=== PATIENT | male | born 1970 | race Caucasian/White ===

== ENCOUNTER 2019-03-31 07:43 | Emergency (ER) | payer SELFPAY ==
[~2019-03-31] VITALS: Ht 177.8 cm; Wt 95.2 kg
[2019-03-31] MEDS ORDERED: PROAIR HFA8.5 GM INH (07:51)
[2019-03-31] MEDS ORDERED: PREDNISONE20 MG PO (08:38)
== END 2019-03-31 08:43 | disposition home or self-care (01) ==
LOC: ED 07:43
DX: J45.901 Unspecified asthma with (acute) exacerbation (principal)
CPT/HCPCS: 71046; 94640; 99284-25; J1100

== ENCOUNTER 2019-05-25 08:20 | Emergency (ER) | payer OTHER ==
[~2019-05-25] VITALS: Ht 180.3 cm; Wt 99.8 kg
[~2019-05-25 08:20] MED LIST: PREDNISONE20 MG PO; PROAIR HFA8.5 GM INH
--- OUTSIDE RECORDS SUMMARY | 2019-05-25 08:22 | XMS ---
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 E.Lizeth. VISIT COUNT (12 MO.) 6 [facility] 2 [facility] [address] TOTAL 13 NOTE: Visits indicate total known visits. ED/UCC VISIT TRACKING (12 MO.) 05/25/2019 08:20 [facility]OLA [facility] [place] TYPE: Emergency COMPLAINT: - VOMITING, SOB 05/17/2019 18:29 SHOLA Ramirez [place] TYPE: Emergency COMPLAINT: - SOB DIAGNOSES: - Shortness of breath - Personal history of nicotine dependence - Unspecified asthma with (acute) exacerbation 03/31/2019 07:43 SHOLA Ramirez [place] TYPE: Emergency COMPLAINT: - SOB DIAGNOSES: - Shortness of breath - Unspecified asthma with (acute) exacerbation 02/01/2019 20:24 [employer] [place] [employer] [place] TYPE: Emergency DIAGNOSES: - NAUSEA/BP ISSUES AFTER TAKING TOO MANY PILLS ON ACCIDENT - Adverse effect of unspecified drugs, medicaments and biologic 01/14/2019 19:28 [employer] [place] [employer] [place] TYPE: Emergency DIAGNOSES: - CHEST PAIN - Palpitations - Mild intermittent asthma, uncomplicated 10/06/2018 14:47 [facility] [place] TYPE: Emergency DIAGNOSES: - Palpitations - PALPUTATIONS - Headache 10/03/2018 07:09 [employer] [place] TYPE: Emergency DIAGNOSES: - Acute tonsillitis, unspecified - SORE THROAT, VOMITING 09/19/2018 07:34 [facility] [place] TYPE: Emergency DIAGNOSES: - DIFFICULTY BREATHING HX OF ASTHMA - Moderate persistent asthma, uncomplicated 08/01/2018 07:15 [facility] [place] TYPE: Emergency COMPLAINT: - DIARRHEA, VOMITING, ABDOMINAL CRAMPING DIAGNOSES: 1. Nausea with vomiting, unspecified 08/01/2018 06:47 [facility] [place] TYPE: Emergency COMPLAINT: - DIARRHEA, CRAMPS, HEADACHE, VOMITING 07/14/2018 13:23 [facility] [place] TYPE: Emergency DIAGNOSES: - Moderate persistent asthma with (acute) exacerbation - SHORTNESS OF BREATH ASTHMA 06/25/2018 17:19 [facility] [place] TYPE: Emergency DIAGNOSES: - Headache (Adult - New Onset Or New Symptoms) - Headache 06/03/2018 11:00 [facility] TYPE: Emergency DIAGNOSES: - Vomiting, unspecified - Abd Pain - Abdominal Pain - Unspecified abdominal pain INPATIENT VISIT TRACKING (12 MO.) No inpatient visits to display in this time frame [email or web address]
[2019-05-25] MEDS ORDERED: TESSALON PERLE100 MG PO (12:13)
--- NOTE | 2019-05-26 21:41 | EKG ---
[facility] [address] [facility] [place] [address] Signed Normal sinus rhythm Normal ECG No previous ECGs available Confirmed by NICHOLE BARRERA MD ([id number]) on 05/26/2019 9:40:58 PM Electronically Signed By: NICHOLE BARRERA MD 05/26/19 214 PATIENT NAME: KOSTAS NUNES ADA Electrocardiogram DATE OF : [birth year] PHYSICIAN: NICHOLE BARRERA MD REPORT #: [id number] REPORT IS CONFIDENTIAL AND NOT TO BE RELEASED WITHOUT AUTHORIZATION
== END 2019-05-25 12:27 | disposition home or self-care (01) ==
LOC: ED 08:20
DX: R05 Cough (principal); F43.10 Post-traumatic stress disorder, unspecified; J45.909 Unspecified asthma, uncomplicated; Z87.891 Personal history of nicotine dependence; Z79.899 Other long term (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
CPT/HCPCS: 71045; 80053; 83880; 84484; 85025; 93005; 93010; 96374; 99284-25; J2405; J7030

== ENCOUNTER 2019-09-21 16:04 | Emergency (ER) | payer OTHER ==
[~2019-09-21] VITALS: Ht 180.3 cm; Wt 102.1 kg
[~2019-09-21 16:04] MED LIST changes: +TESSALON PERLE100 MG PO
[2019-09-21] MEDS ORDERED: PREDNISONE20 MG PO (17:37)
== END 2019-09-21 18:27 | disposition home or self-care (01) ==
LOC: ED 16:04
DX: J45.901 Unspecified asthma with (acute) exacerbation (principal); Z87.891 Personal history of nicotine dependence
CPT/HCPCS: 71046; 94640; 99284-25; J7512

== ENCOUNTER → 2019-12-17 | Emergency (ER) | payer OTHER ==
[~2019-12-17] VITALS: Ht 180.3 cm; Wt 102.1 kg
[~2019-12-17] MED LIST changes: +CELEXA40 MG PO; +SEROQUEL300 MG PO
--- NOTE | 2019-12-17 13:48 | EKG ---
[facility] [address] [place] [address] Signed Normal sinus rhythm Normal ECG When compared with ECG of 25-MAY-2019 08:40, No significant change was found Confirmed by PATRICIA HUMMEL MD ([id number]) on 12/17/2019 1:48:23 PM Electronically Signed By: PATRICIA HUMMEL MD 12/17/19 1348 PATIENT NAME: KOSTAS NUNES ADA Electrocardiogram DATE OF : [birth year] PHYSICIAN: PATRICIA HUMMEL MD REPORT #: [id number] REPORT IS CONFIDENTIAL AND NOT TO BE RELEASED WITHOUT AUTHORIZATION
--- NOTE | 2019-12-18 10:05 | PATH ---
[facility] [address] [place], [place] [address] Signed ORDERING PHYSICIAN: Heber Page MD PATIENT NAME: KOSTAS NUNES GENDER: Miah : 1970 Prior History: No cases found. SPECIMEN(S): MOLECULAR PATHOLOGY RESULTS: SARS-CoV-2 Not Detected ADDITIONAL NOTES.: The Marcus Fusion SARS-CoV-2 Assay is a multiplex real-time PCR (RT-PCR) in vitro diagnostic test intended for the qualitative detection of RNA from SARS-CoV-2 from individuals who meet COVID-19 clinical and/or epidemiological criteria. In general, SARS-CoV-2 RNA can be detected during the acute phase of infection. Positive results indicate the presence of SARS-CoV-2 RNA. Clinical correlation with patient history and other diagnostic information is necessary to determine patient infection status. Positive results do not rule out bacterial infection or co-infection with other viruses. Negative results do not preclude SARS-CoV-2 infection and should not be used as the sole basis for patient management decisions. Negative results must be combined with other clinical observations, patient history, and epidemiological information. The Marcus Fusion SARS-CoV-2 Assay is not yet approved or cleared by the [place] FDA. When there are no FDA-approved or cleared tests available, and other criteria are met, FDA can make tests available under an emergency access mechanism called an Emergency Use Authorization (EUA). The EUA for this test is supported by the [place] of Health and Human Service's (HHS's) declaration that circumstances exist to justify the emergency use of in vitro diagnostics for the detection and/or diagnosis of the virus that causes COVID-19. This EUA will remain in effect for the duration of the COVID-19 declaration justifying emergency of IVDs, unless it is terminated or revoked by FDA, after which the test may no longer be used. The Marcus Fusion SARS-CoV-2 Assay is for use only under EUA PATIENT NAME: KOSTAS NUNES PATHOLOGY DATE OF : [birth year] REPORT #: [id number] PHYSICIAN: LEV SANTIAGO PCP: ELISE HERZOG REPORT IS CONFIDENTIAL AND NOT TO BE RELEASED WITHOUT AUTHORIZATION [facility] [address] [place], [place] [address] Signed in [place] laboratories certified under the Clinical Laboratory Improvement Amendments of 1988 (CLIA) to perform high complexity tests. [facility] is certified under CLIA to perform high complexity clinical laboratory testing. PERFORMING LABORATORY.: Molecular testing was performed by [facility] [address] [place], [place] [address], [place] [address] (Elevator Operator: Albaro Allen D.O.; CLIA#: [id number]) Diagnostician: System Interface Pathologist Electronically Signed 12/18/2019 Copies: ~ PATIENT NAME: KOSTAS NUNES PATHOLOGY DATE OF : [birth year] REPORT #: [id number] PHYSICIAN: LEV SANTIAGO PCP: ELISE HERZOG REPORT IS CONFIDENTIAL AND NOT TO BE RELEASED WITHOUT AUTHORIZATION
== END ==
LOC: ED 11:32
DX: R07.89 Other chest pain (principal); J45.909 Unspecified asthma, uncomplicated; Z20.828 Contact with and (suspected) exposure to other viral communicable diseases; F43.10 Post-traumatic stress disorder, unspecified; Z87.891 Personal history of nicotine dependence; Z79.899 Other long term (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
CPT/HCPCS: 71045; 71046; 80053; 83735; 84484; 85025; 93005; 93010; 96374; 99285-25; C9803; J1100; J7030

== ENCOUNTER 2020-01-13 09:25 | Emergency (ER) | payer OTHER ==
[~2020-01-13] VITALS: Ht 180.3 cm; Wt 102.1 kg
--- OUTSIDE RECORDS SUMMARY | 2020-01-13 09:30 | XMS ---
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 Care History Medical/Surgical 05/26/2019 [facility] \T\middot;\T\nbsp; PATIENT IS A -RECEIVES SERVICES THROUGH OR IN [place]. \T\middot;\T\nbsp; Location: [address], [place] [address]- E.D. VISIT COUNT (12 MO.) 2 [facility] 6 [place] [place] TOTAL 8 NOTE: Visits indicate total known visits. ED/UCC VISIT TRACKING (12 MO.) 01/13/2020 09:27 SHOLA Ramirez [place] TYPE: Emergency COMPLAINT: - BREATHING DIFFICULTY 12/17/2019 11:34 [facility]OL[facility] Ramirez [place] TYPE: Emergency COMPLAINT: - SOB, COLD SWEAT, NAUSEA, CHEST DISCOMFORT DIAGNOSES: - Other residential (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 - Post-traumatic stress disorder, unspecified - Contact with and (suspected) exposure to other viral communicable diseases - Personal history of nicotine dependence - Other chest pain - Unspecified asthma, uncomplicated 09/21/2019 16:[address] [facility] [place] TYPE: Emergency COMPLAINT: - WHEEZING DIAGNOSES: - Wheezing - Unspecified asthma with (acute) exacerbation - Personal history of nicotine dependence 05/25/2019 08:[address] [facility] [place] TYPE: Emergency COMPLAINT: - VOMITING, SOB DIAGNOSES: - Post-traumatic stress disorder, unspecified - Other superintendent terminal (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 - Personal history of nicotine dependence - Unspecified asthma, uncomplicated - Cough 05/17/2019 18:[address] [facility] [place] TYPE: Emergency COMPLAINT: - SOB DIAGNOSES: - Shortness of breath - Personal history of nicotine dependence - Unspecified asthma with (acute) exacerbation 03/31/2019 07:43 [facility]OL[facility] [place] TYPE: Emergency COMPLAINT: - SOB DIAGNOSES: - Shortness of breath - Unspecified asthma with (acute) exacerbation 02/01/2019 20:24 [facility] [place] TYPE: Emergency DIAGNOSES: - NAUSEA/BP ISSUES AFTER TAKING TOO MANY PILLS ON ACCIDENT - Adverse effect of unspecified drugs, medicaments and biological substances, initial encounter 01/14/2019 19:28 [facility] [place] TYPE: Emergency DIAGNOSES: - CHEST PAIN - Palpitations - Mild intermittent asthma, uncomplicated INPATIENT VISIT TRACKING (12 MO.) No inpatient visits to display in this time frame [email or web address]
[2020-01-13] MEDS ORDERED: VENTOLIN HFA18 GM INH (10:16)
[2020-01-13] MEDS ORDERED: PREDNISONE20 MG PO (10:22)
== END 2020-01-13 10:26 | disposition home or self-care (01) ==
LOC: ED 09:25
DX: J45.901 Unspecified asthma with (acute) exacerbation (principal); F43.10 Post-traumatic stress disorder, unspecified; Z87.891 Personal history of nicotine dependence; Z79.899 Other long term (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
CPT/HCPCS: 94640; 99284; J1100

== ENCOUNTER 2020-02-11 06:41 | Emergency (ER) | payer OTHER ==
[~2020-02-11] VITALS: Ht 180.3 cm; Wt 107.0 kg
[~2020-02-11 06:41] MED LIST changes: +VENTOLIN HFA18 GM INH
--- OUTSIDE RECORDS SUMMARY | 2020-02-11 06:44 | XMS ---
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 Care History Medical/Surgical 05/26/2019 [facility] \T\middot;\T\nbsp; PATIENT IS A -RECEIVES [place]ROUGH [place]. \T\middot;\T\nbsp; Location: [address], [place] [address]- E.D. VISIT COUNT (12 MO.) 7 SHOLA Foley TOTAL 7 NOTE: Visits indicate total known visits. 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 (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 - Post-traumatic stress disorder, unspecified - Contact with and (suspected) exposure to other viral communicable diseases - Personal history of nicotine dependence - Other chest pain - Unspecified asthma, uncomplicated 09/21/2019 16:05 [facility]OL[facility] Ramirez [place] TYPE: Emergency COMPLAINT: - WHEEZING DIAGNOSES: - Wheezing - Unspecified asthma with (acute) exacerbation - Personal history of nicotine dependence 05/25/2019 08:20 [facility] [place] TYPE: Emergency COMPLAINT: - VOMITING, SOB DIAGNOSES: - Post-traumatic stress disorder, unspecified - Other parts counterman (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 - Personal history of nicotine dependence - Unspecified asthma, uncomplicated - Cough 05/17/2019 18:29 [facility] [place] TYPE: Emergency COMPLAINT: - SOB DIAGNOSES: - Shortness of breath - Personal history of nicotine dependence - Unspecified asthma with (acute) exacerbation 03/31/2019 07:43 [facility] [place] TYPE: Emergency COMPLAINT: - SOB DIAGNOSES: - Shortness of breath - Unspecified asthma with (acute) exacerbation INPATIENT VISIT TRACKING (12 MO.) No inpatient visits to display in this time frame [email or web address]
== END 2020-02-11 19:10 | disposition home or self-care (01) ==
LOC: ED 06:41
DX: K29.70 Gastritis, unspecified, without bleeding (principal); J45.909 Unspecified asthma, uncomplicated; Z87.891 Personal history of nicotine dependence; Z79.899 Other long term (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
CPT/HCPCS: 80053; 81001; 83690; 85025; 96374; 96375; 99284-25; J1170; J2405

== ENCOUNTER 2020-05-16 23:14 | Emergency (ER) | payer OTHER ==
[~2020-05-16] VITALS: Ht 180.3 cm; Wt 104.3 kg
[2020-05-16] MEDS ORDERED: DOXYCYCLINE HY100 MG PO (23:30)
[2020-05-17] MEDS ORDERED: BENADRYL25 MG PO (00:37)
--- NOTE | 2020-05-17 15:40 | EKG ---
[facility] [address] [facility] [place], [place] [address] Signed Normal sinus rhythm Normal ECG When compared with ECG of 17-DEC-2019 11:51, No significant change was found Confirmed by JESÚS MORA DO ([id number]) on 05/17/2020 3:40:20 PM Electronically Signed By: JESÚS MORA DO 05/17/20 1540 PATIENT NAME: KOSTAS NUNES ADA Electrocardiogram DATE OF : [birth year] PHYSICIAN: JESÚS MORA DO REPORT #: [id number] REPORT IS CONFIDENTIAL AND NOT TO BE RELEASED WITHOUT AUTHORIZATION
== END 2020-05-17 01:52 | disposition home or self-care (01) ==
LOC: ED 23:14
DX: R00.2 Palpitations (principal); R11.2 Nausea with vomiting, unspecified; J45.909 Unspecified asthma, uncomplicated; Z87.891 Personal history of nicotine dependence; Z79.899 Other long term (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
CPT/HCPCS: 80053; 83690; 83735; 84484; 85025; 93005; 93010; 96374; 99285-25; J2405

== ENCOUNTER 2020-07-20 10:59 | Emergency (ER) | payer OTHER ==
[~2020-07-20] VITALS: Ht 180.3 cm; Wt 104.3 kg
[~2020-07-20 10:59] MED LIST changes: +BENADRYL25 MG PO; +DOXYCYCLINE HY100 MG PO
[2020-07-20] MEDS ORDERED: PROMETHAZINE HC25 M1 PO (13:59)
--- NOTE | 2020-07-21 13:34 | EKG ---
[facility] [address] [place] [address] Signed Normal sinus rhythm with sinus arrhythmia Normal ECG When compared with ECG of 16-MAY-2020 23:19, No significant change was found Confirmed by NICHOLE BARRERA MD ([id number]) on 07/21/2020 1:33:58 PM Electronically Signed By: NICHOLE BARRERA MD 07/21/20 1334 PATIENT NAME: KOSTAS NUNES AAD Electrocardiogram DATE OF : [birth year] PHYSICIAN: NICHOLE BARRERA MD REPORT #: [id number] REPORT IS CONFIDENTIAL AND NOT TO BE RELEASED WITHOUT AUTHORIZATION
== END 2020-07-20 14:15 | disposition home or self-care (01) ==
LOC: ED 10:59
DX: R11.2 Nausea with vomiting, unspecified (principal); F43.10 Post-traumatic stress disorder, unspecified; J45.909 Unspecified asthma, uncomplicated; Z87.891 Personal history of nicotine dependence; Z79.899 Other long term (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
CPT/HCPCS: 71045; 74177; 80053; 83735; 84484; 85025; 93005; 93010; 99284-25; J2405; Q9967

== ENCOUNTER 2020-08-12 20:01 | Emergency (ER) | payer OTHER ==
[~2020-08-12] VITALS: Ht 180.3 cm; Wt 100.7 kg
[~2020-08-12 20:01] MED LIST changes: +PROMETHAZINE HC25 M1 PO
--- OUTSIDE RECORDS SUMMARY | 2020-08-12 20:10 | XMS ---
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 Care History Medical/Surgical 05/26/2019 [facility] \T\middot;\T\nbsp; PATIENT IS A -[facility] [place] \T\middot;\T\nbsp; Location: [address], [place] [address]- E.D. VISIT COUNT (12 MO.) 7 SHOLA Foley TOTAL 7 NOTE: Visits indicate total known visits. ED/UCC VISIT TRACKING (12 MO.) 08/12/2020 20:01 SHOLA Ramirez [place] TYPE: Emergency COMPLAINT: - VOMITING 07/20/2020 11:00 [facility]OL[facility] [place] TYPE: Emergency COMPLAINT: - NAUSEA/DIZZINESS DIAGNOSES: - Personal history of nicotine dependence - Post-traumatic stress disorder, unspecified - Nausea with vomiting, unspecified - Unspecified asthma, uncomplicated - Other terminal clerk (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 05/16/2020 23:15 [facility]OL[facility] Ramirez [place] TYPE: Emergency COMPLAINT: - SICK TO STOMACH DIAGNOSES: - Other penitentiary (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 - Personal history of nicotine dependence - Nausea with vomiting, unspecified - Palpitations - Unspecified asthma, uncomplicated 02/11/2020 06:41 SHOL[facility] [place] TYPE: Emergency COMPLAINT: - ABD/BACK PAIN, NAUSEA DIAGNOSES: - Gastritis, unspecified, without bleeding - Unspecified asthma, uncomplicated - Personal history of nicotine dependence - Other penitentiary (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 01/13/2020 09:27 [facility]OL[facility] Ramirez [place] TYPE: Emergency COMPLAINT: - BREATHING DIFFICULTY DIAGNOSES: - Post-traumatic stress disorder, unspecified - Shortness of breath - Personal history of nicotine dependence - Other penitentiary (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 - Unspecified asthma with (acute) exacerbation 12/17/2019 11:34 [facility]OL[facility] Ramirez [place] TYPE: Emergency COMPLAINT: - SOB, COLD SWEAT, NAUSEA, CHEST DISCOMFORT DIAGNOSES: - Other terminal clerk (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 - Post-traumatic stress disorder, unspecified - Contact with and (suspected) exposure to other viral communicable diseases - Personal history of nicotine dependence - Other chest pain - Unspecified asthma, uncomplicated 09/21/2019 16:05 [facility]OL[facility] [place] TYPE: Emergency COMPLAINT: - WHEEZING DIAGNOSES: - Wheezing - Unspecified asthma with (acute) exacerbation - Personal history of nicotine dependence INPATIENT VISIT TRACKING (12 MO.) No inpatient visits to display in this time frame [email or web address]
[2020-08-12] MEDS ORDERED: OMEPRAZOLE20 MG PO (20:42)
--- NOTE | 2020-08-13 07:12 | EKG ---
[facility] [address] [facility] [place], [place] [address] Signed Normal sinus rhythm Normal ECG When compared with ECG of 20-JUL-2020 11:40, No significant change was found Confirmed by PATRICIA HUMMEL MD ([id number]) on 08/13/2020 7:12:39 AM Electronically Signed By: PATRICIA HUMMEL MD 08/13/20711 PATIENT NAME: KOSTAS NUNES ADA Electrocardiogram DATE OF : [birth year] PHYSICIAN: PATRICIA HUMMEL MD REPORT #: [id number] REPORT IS CONFIDENTIAL AND NOT TO BE RELEASED WITHOUT AUTHORIZATION
== END 2020-08-13 01:10 | disposition home or self-care (01) ==
LOC: ED 20:01
DX: F41.9 Anxiety disorder, unspecified (principal); R45.851 Suicidal ideations; J45.909 Unspecified asthma, uncomplicated; F17.200 Nicotine dependence, unspecified, uncomplicated; Z79.899 Other long term (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
CPT/HCPCS: 80053; 81001; 83690; 83735; 84443; 84484; 85025; 93005; 93010; 96374; 99285-25; G0480; J2405

== ENCOUNTER 2020-08-22 10:45 | Emergency (ER) | payer OTHER ==
[~2020-08-22] VITALS: Ht 180.3 cm; Wt 100.7 kg
[~2020-08-22 10:45] MED LIST changes: +OMEPRAZOLE20 MG PO
--- OUTSIDE RECORDS SUMMARY | 2020-08-22 10:52 | XMS ---
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 Care History Medical/Surgical 05/26/2019 [facility] \T\middot;\T\nbsp; PATIENT IS A -[facility] [place]. \T\middot;\T\nbsp; Location: [address], [place] [address]- E.D. VISIT COUNT (12 MO.) 8 SHOLA Foley TOTAL 8 NOTE: Visits indicate total known visits. ED/UCC VISIT TRACKING (12 MO.) 08/22/2020 10:45 SHOLA Ramirez [place] TYPE: Emergency COMPLAINT: - NAUSEA 08/12/2020 20:01 [facility]OL[facility] [place] TYPE: Emergency COMPLAINT: - VOMITING DIAGNOSES: - Other intermediate (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 - Nicotine dependence, unspecified, uncomplicated - Suicidal ideations - Unspecified asthma, uncomplicated - Anxiety disorder, unspecified 07/20/2020 11:00 [facility]OL[facility] [place] TYPE: Emergency COMPLAINT: - NAUSEA/DIZZINESS DIAGNOSES: - Personal history of nicotine dependence - Post-traumatic stress disorder, unspecified - Nausea with vomiting, unspecified - Unspecified asthma, uncomplicated - Other intermediate (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 05/16/2020 23:15 [facility] [place] TYPE: Emergency COMPLAINT: - SICK TO STOMACH DIAGNOSES: - 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 (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 - Personal history of nicotine dependence - Nausea with vomiting, unspecified - Palpitations - Unspecified asthma, uncomplicated 02/11/2020 06:41 [facility]OL[facility] [place] TYPE: Emergency COMPLAINT: - ABD/BACK PAIN, NAUSEA DIAGNOSES: - Gastritis, unspecified, without bleeding - Unspecified asthma, uncomplicated - Personal history of nicotine dependence - Other intermediate (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 01/13/2020 09:27 [facility] [place] TYPE: Emergency COMPLAINT: - BREATHING DIFFICULTY DIAGNOSES: - Post-traumatic stress disorder, unspecified - Shortness of breath - Personal history of nicotine dependence - Other intermediate (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 - Unspecified asthma with (acute) exacerbation 12/17/2019 11:34 [facility]OL[facility] Ramirez [place] TYPE: Emergency COMPLAINT: - SOB, COLD SWEAT, NAUSEA, CHEST DISCOMFORT DIAGNOSES: - Other intermediate (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 - Post-traumatic stress disorder, [...] visits to display in this time frame [email or web address]
[2020-08-22] MEDS ORDERED: PROMETHAZINE HC25 M1 PO (11:03)
[2020-08-22] MEDS ORDERED: ONDANSETRON ODT8 MG PO (12:46)
== END 2020-08-22 13:10 | disposition home or self-care (01) ==
LOC: ED 10:45
DX: R11.2 Nausea with vomiting, unspecified (principal); F41.9 Anxiety disorder, unspecified; F43.10 Post-traumatic stress disorder, unspecified; F17.200 Nicotine dependence, unspecified, uncomplicated; Z79.899 Other long term (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
CPT/HCPCS: 80053; 83735; 85025; 96374; 99284-25; J2405; J7030

== ENCOUNTER 2020-11-08 16:46 | Emergency (ER) | payer OTHER ==
[~2020-11-08] VITALS: Ht 180.3 cm; Wt 100.2 kg
[~2020-11-08 16:46] MED LIST changes: +ONDANSETRON ODT8 MG PO
[2020-11-08] MEDS ORDERED: CITALOPRAM HBR20 MG PO (20:13)
[2020-11-08] MEDS ORDERED: QUETIAPINE FUM300 MG PO (20:13)
[2020-11-08] MEDS ORDERED: LORAZEPAM1 MG PO (20:13)
== END 2020-11-08 23:57 | disposition home or self-care (01) ==
LOC: ED 16:46
DX: U07.1 COVID-19 (principal); J45.909 Unspecified asthma, uncomplicated; F17.200 Nicotine dependence, unspecified, uncomplicated; Z79.899 Other long term (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
CPT/HCPCS: 99284-25; C9803; M0243; Q0244; U0003

== ENCOUNTER 2020-12-14 22:00 | Emergency (ER) | payer OTHER ==
[~2020-12-14] VITALS: Ht 180.3 cm; Wt 104.0 kg
[~2020-12-14 22:00] MED LIST changes: +CITALOPRAM HBR20 MG PO; +LORAZEPAM1 MG PO; +QUETIAPINE FUM300 MG PO
--- OUTSIDE RECORDS SUMMARY | 2020-12-14 22:28 | XMS ---
PreManage Notification: KOSTAS NUNES Security Manager Culture Events No recent Security Events currently on file CRITERIA MET - ED - Positive COVID-19 Lab Result - [facility] CARE PROVIDERS Dino De León Community Health Worker 01/22/2019-Current PHONE: [phone] [facility] \F\ [facility] 05/26/2019-[facility] Pharm[facility] PHARMACY PHONE: [phone] [facility]Current PHONE: [phone] Uvaldo has no Care Guidelines for this patient. Care History Medical/Surgical 09/01/2020 [facility] - PATIENT HAS A [facility] PROVIDER OUT OF [place] AND A PROVIDER AT [facility]- DR VELASCO. PATIENT HAS SEEN DR VELASCO 08/31/20 ABD . HE HAS AN APT WITH [facility] PROVIDER AT THE END OF SEPTEMBER - EARLIEST APT THEY CAN DO. - PATIENT DOES NOT LIKE [employer] AND WILL GO THROUGH THE [place] FOR MENTAL HEALTH RESOURCES PER PATIENT PREFERENCE. 05/26/2019 [facility] \T\middot;\T\nbsp; PATIENT [place] -[place]. \T\middot;\T\nbsp; Location: [address], [place] [address]- E.D. VISIT COUNT ([address] MO[address] [facility]. TOTAL 9 NOTE: Visits indicate total known visits. ED/UCC VISIT TRACKING (12 MO.) 12/14/2020 22:01 SHOLA Ramirez [place] TYPE: Emergency COMPLAINT: - DENTAL PAIN 11/08/2020 16:47 [place] TYPE: Emergency COMPLAINT: - DIFFICULTY BREATHING DIAGNOSES: - Nicotine dependence, unspecified, uncomplicated - COVID-19 - Unspecified asthma, uncomplicated - Other skilled nursing (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 - Shortness of breath 08/22/2020 10:[address] [facility] [place] TYPE: Emergency COMPLAINT: - NAUSEA DIAGNOSES: - Anxiety disorder, unspecified - Nicotine dependence, unspecified, uncomplicated - Nausea with vomiting, unspecified - Other skilled nursing (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 - Post-traumatic stress disorder, unspecified 08/12/2020 20:[address] [facility] [place] TYPE: Emergency COMPLAINT: - VOMITING DIAGNOSES: - Other skilled nursing (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 - Nicotine dependence, unspecified, uncomplicated - Suicidal ideations - Unspecified asthma, uncomplicated - Anxiety disorder, unspecified 07/20/2020 11:00 [facility]OLA Ramirez [place] TYPE: Emergency COMPLAINT: - NAUSEA/DIZZINESS DIAGNOSES: - Personal history of nicotine dependence - Post-traumatic stress disorder, unspecified - Nausea with vomiting, unspecified - Unspecified asthma, uncomplicated - Other skilled nursing (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 05/16/2020 23:15 [facility]OL[facility] [place] TYPE: Emergency COMPLAINT: - SICK TO STOMACH DIAGNOSES: - Other skilled nursing (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 - Personal history of nicotine dependence - Nausea with vomiting, unspecified - Palpitations - Unspecified asthma, uncomplicated 02/11/2020 06:41 [facility]OL[facility] [place] TYPE: Emergency COMPLAINT: - ABD/BACK PAIN, NAUSEA DIAGNOSES: - Gastritis, unspecified, without bleeding - Unspecified asthma, uncomplicated - Personal history of nicotine dependence - 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 long term care pharmacist (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 01/13/2020 09:27 [facility]OL[facility] [place] TYPE: Emergency COMPLAINT: - BREATHING DIFFICULTY DIAGNOSES: - Post-traumatic stress disorder, unspecified - Shortness of breath - Personal history of nicotine dependence - Other skilled nursing (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 - Unspecified asthma with (acute) exacerbation 12/17/2019 11:34 SHOLA Ramirez [place] TYPE: Emergency COMPLAINT: - SOB, COLD SWEAT, NAUSEA, CHEST DISCOMFORT DIAGNOSES: - Other skilled nursing (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 - Post-traumatic stress disorder, unspecified - Contact with and (suspected) exposure to other viral communicable diseases - Personal history of nicotine dependence - Other chest pain - Unspecified asthma, uncomplicated INPATIENT VISIT TRACKING (12 MO.) No inpatient visits to display in this time frame [email or web address]
[2020-12-14] MEDS ORDERED: AMOXICILLIN500 MG PO (22:41)
[2020-12-14] MEDS ORDERED: HYDROCODON-ACE1 EA10 PO (22:41)
== END 2020-12-14 23:05 | disposition home or self-care (01) ==
LOC: ED 22:00
DX: K08.89 Other specified disorders of teeth and supporting structures (principal); F43.10 Post-traumatic stress disorder, unspecified; J45.909 Unspecified asthma, uncomplicated; F17.200 Nicotine dependence, unspecified, uncomplicated; Z79.899 Other long term (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
CPT/HCPCS: 99282

== ENCOUNTER 2021-07-16 20:49 | Emergency (ER) | payer OTHER ==
[~2021-07-16] VITALS: Ht 177.8 cm; Wt 108.5 kg
[~2021-07-16 20:49] MED LIST changes: +AMOXICILLIN500 MG PO; +HYDROCODON-ACE1 EA10 PO
--- OUTSIDE RECORDS SUMMARY | 2021-07-16 20:52 | XMS ---
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 \F\ [facility] ([facility]) 05/26/2019-Current [facility] Pharmacy PHARMACY PH[facility]: [phone] [facility]Current PHONE: Unknown Uvaldo has no Care Guidelines for this patient. Care History Medical/Surgical 09/01/2020 [facility] - PATIENT HAS A VA PROVIDER OUT OF [place] AND A PROVIDER AT [facility]- DR VELASCO. PATIENT HAS SEEN DR VELASCO 08/31/20 ABD . HE HAS AN APT WITH [facility] PROVIDER AT THE END OF SEPTEMBER - EARLIEST APT THEY CAN DO. - PATIENT DOES NOT LIKE [employer] AND WILL GO THROUGH THE [place] FOR MENTAL HEALTH RESOURCES PER PATIENT PREFERENCE. 05/26/2019 [facility] \T\middot;\T\nbsp; PATIENT IS A -RECEIVES SERVICES THROUGH [facility] IN [place]. \T\middot;\T\nbsp; Location: [address], [place] [address]- E.D. VISIT COUNT (12 MO.) 7 [facility] TOTAL 7 NOTE: Visits indicate total known visits. ED/UCC VISIT TRACKING (12 MO.) 07/16/2021 20:50 [facility] [place] TYPE: Emergency COMPLAINT: - HEAD ACHE, DIZZINESS, SWEATS, 01/09/2021 11:23 [facility] [place] TYPE: Emergency COMPLAINT: - HEART PALPITATIONS,N/V DIAGNOSES: - Post-traumatic stress disorder, unspecified - Unspecified asthma, uncomplicated - Other skilled nursing (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 - Palpitations - Atrial premature depolarization - Nicotine dependence, unspecified, uncomplicated 12/14/2020 22:01 [facility] [place] TYPE: Emergency COMPLAINT: - DENTAL PAIN DIAGNOSES: - Other skilled nursing (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 - Other specified disorders of teeth and supporting structures - Unspecified asthma, uncomplicated - Nicotine dependence, unspecified, uncomplicated - Post-traumatic stress disorder, unspecified 11/08/2020 16:47 [facility] [place] TYPE: Emergency COMPLAINT: - DIFFICULTY BREATHING DIAGNOSES: - Nicotine dependence, unspecified, uncomplicated - COVID-19 - Unspecified asthma, uncomplicated - Other medical 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 [place] HRip Shepard [place] TYPE: Emergency COMPLAINT: - NAUSEA DIAGNOSES: - Anxiety disorder, unspecified - Nicotine dependence, unspecified, uncomplicated - Nausea with vomiting, unspecified - Other skilled nursing (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 - Post-traumatic stress disorder, unspecified 08/12/2020 20:[address] [facility] [place] [facility] [place] TYPE: Emergency COMPLAINT: - VOMITING DIAGNOSES: - Other skilled nursing (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 - Nicotine dependence, unspecified, uncomplicated - Suicidal ideations - Unspecified asthma, uncomplicated - Anxiety disorder, unspecified 07/20/2020 11:[address] [facility] [place] [facility] [place] TYPE: Emergency COMPLAINT: - NAUSEA/DIZZINESS DIAGNOSES: - Personal history of nicotine dependence - Post-traumatic stress disorder, unspecified - Nausea with vomiting, unspecified - Unspecified asthma, uncomplicated - Other skilled nursing (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 INPATIENT VISIT TRACKING (12 MO.) No inpatient visits to display in this time frame [email or web address]
[2021-07-16] MEDS ORDERED: BENZONATATE200 MG PO (23:22)
== END 2021-07-17 00:28 | disposition home or self-care (01) ==
LOC: ED 20:49
DX: J10.1 Influenza due to other identified influenza virus with other respiratory manifestations (principal); J45.901 Unspecified asthma with (acute) exacerbation; F43.10 Post-traumatic stress disorder, unspecified; F17.200 Nicotine dependence, unspecified, uncomplicated; Z79.899 Other long term (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
CPT/HCPCS: 71045; 94640; 99283-25

== ENCOUNTER 2021-08-16 10:19 | Emergency (ER) | payer OTHER ==
[~2021-08-16] VITALS: Ht 177.8 cm; Wt 101.2 kg
[~2021-08-16 10:19] MED LIST changes: +BENZONATATE200 MG PO; +OMEPRAZOLE20 M2 PO
--- OUTSIDE RECORDS SUMMARY | 2021-08-16 10:22 | XMS ---
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 Care History Medical/Surgical 09/01/2020 [facility] - PATIENT HAS A [facility] PROVIDER OUT OF [place] AND A PROVIDER AT [facility]- DR VELASCO. PATIENT HAS SEEN DR VELASCO 08/31/20 ABD . HE HAS AN APT WITH [facility] PROVIDER AT THE END OF SEPTEMBER - EARLIEST APT THEY CAN DO. - PATIENT DOES NOT LIKE [employer] AND WILL GO THROUGH THE [facility] FOR MENTAL HEALTH RESOURCES PER PATIENT PREFERENCE. 05/26/2019 [facility] \T\middot;\T\nbsp; PATIENT IS A -RECEIVES SERVICES THROUGH [facility] [place]. \T\middot;\T\nbsp; Location: [address], [place] [address]- E.D. VISIT COUNT (12 MO.) 6 [facility] TOTAL 6 NOTE: Visits indicate total known visits. ED/UCC VISIT TRACKING (12 MO.) 08/16/2021 10:20 [facility] Maish Vaya HRip Shepard [place] TYPE: Emergency COMPLAINT: - L SHOULDER PAIN, HEADACHE 07/16/2021 20:50 [facility] Schumachercally DonnellyRip [facility] [place] TYPE: Emergency COMPLAINT: - HEAD ACHE, DIZZINESS, SWEATS, DIAGNOSES: - Other nursing home (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 - Cough, unspecified - Nicotine dependence, unspecified, uncomplicated - Influenza due to other identified influenza virus with other respiratory manifestations - Unspecified asthma with (acute) exacerbation - Post-traumatic stress disorder, unspecified 01/09/2021 11:23 [facility] [place] TYPE: Emergency COMPLAINT: - HEART PALPITATIONS,N/V DIAGNOSES: - Post-traumatic stress disorder, unspecified - Contact with and (suspected) exposure to COVID-19 - Unspecified asthma, uncomplicated - Other roasterman (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 - Palpitations - Atrial premature depolarization - Nicotine dependence, unspecified, uncomplicated 12/14/2020 22:01 [facility] [place] [place] TYPE: Emergency COMPLAINT: - DENTAL PAIN DIAGNOSES: - Other nursing home (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 - Other specified disorders of teeth and supporting structures - Unspecified asthma, uncomplicated - Nicotine dependence, unspecified, uncomplicated - Post-traumatic stress disorder, unspecified 11/08/2020 16:[address] [facility] [place] TYPE: Emergency COMPLAINT: - DIFFICULTY BREATHING DIAGNOSES: - Nicotine dependence, unspecified, uncomplicated - COVID-19 - Unspecified asthma, uncomplicated - Other nursing home (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 - Shortness of breath 08/22/2020 10:45 [facility] [place] [place] TYPE: Emergency COMPLAINT: - NAUSEA DIAGNOSES: - Anxiety disorder, unspecified - Nicotine dependence, unspecified, uncomplicated - Nausea with vomiting, unspecified - Other roasterman (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 - Post-traumatic stress disorder, unspecified INPATIENT VISIT TRACKING (12 MO.) No inpatient visits to display in this time frame [email or web address]
[2021-08-16] MEDS ORDERED: PREDNISONE20 MG PO (12:55)
== END 2021-08-16 13:26 | disposition home or self-care (01) ==
LOC: ED 10:19
DX: M25.512 Pain in left shoulder (principal); J45.909 Unspecified asthma, uncomplicated; F17.200 Nicotine dependence, unspecified, uncomplicated; Z86.16 Personal history of COVID-19
CPT/HCPCS: J7512

== ENCOUNTER 2021-09-04 07:10 | Emergency (ER) | payer OTHER ==
[~2021-09-04] VITALS: Ht 177.8 cm; Wt 101.3 kg
--- OUTSIDE RECORDS SUMMARY | 2021-09-04 07:12 | XMS ---
PreManage Notification: KOSTAS NUNES Security Casino Gaming Worker Events No recent Security Events currently on file CRITERIA MET - [facility] - 2 Visits in 30 Days CARE PROVIDERS Dino De León Community Health Worker 01/22/2019-Current PHONE: [phone] [facility] \F\ [facility] ([facility]) 05/26/2019-[facility] PHARMACY PHONE: [phone] [facility]-Current PHONE: Unknown Uvaldo has no Care Guidelines for this patient. Care History Medical/Surgical 09/01/2020 [facility] - PATIENT HAS A VA PROVIDER OUT OF [place] AND A PROVIDER AT [facility]- DR VELASCO. PATIENT HAS SEEN DR VELASCO 08/31/20 ABD . HE HAS AN APT WITH [facility] PROVIDER AT THE END OF SEPTEMBER - EARLIEST APT THEY CAN DO. - PATIENT DOES NOT LIKE [employer] AND WILL GO THROUGH THE [place] FOR MENTAL HEALTH RESOURCES PER PATIENT PREFERENCE. 05/26/2019 [facility] \T\middot;\T\nbsp; PATIENT IS A -RECEIVES SERVICES THROUGH [place]. \T\middot;\T\nbsp; Location: [address], [place] [address]- E.D. VISIT COUNT (12 MO.) 6 [facility] TOTAL 6 NOTE: Visits indicate total known visits. ED/UCC VISIT TRACKING (12 MO.) 09/04/2021 07:11 [facility] [place] TYPE: Emergency COMPLAINT: - SHAKEY,ANXIETY 08/16/2021 10:20 [facility] [place] TYPE: Emergency COMPLAINT: - L SHOULDER PAIN, HEADACHE DIAGNOSES: - Pain in left shoulder - Unspecified asthma, uncomplicated - Nicotine dependence, unspecified, uncomplicated - Personal history of COVID-19 07/16/2021 20:50 [facility] [place] TYPE: Emergency COMPLAINT: - HEAD ACHE, DIZZINESS, SWEATS, DIAGNOSES: - Other long-term (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 - Cough, unspecified - Nicotine dependence, unspecified, uncomplicated - Influenza due to other identified influenza virus with other respiratory manifestations - Unspecified asthma with (acute) exacerbation - Post-traumatic stress disorder, unspecified 01/09/2021 11:23 [facility] [place] TYPE: Emergency COMPLAINT: - HEART PALPITATIONS,N/V DIAGNOSES: - Post-traumatic stress disorder, unspecified - Contact with and (suspected) exposure to COVID-19 - Unspecified asthma, uncomplicated - Other oil heaterman (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 - Palpitations - Atrial premature depolarization - Nicotine dependence, unspecified, uncomplicated 12/14/2020 22:01 [facility] [place] TYPE: Emergency COMPLAINT: - DENTAL PAIN DIAGNOSES: - Other oil heaterman (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 - Other specified disorders of teeth and supporting structures - Unspecified asthma, uncomplicated - Nicotine dependence, unspecified, uncomplicated - Post-traumatic stress disorder, unspecified 11/08/2020 16:47 [facility] [place] TYPE: Emergency COMPLAINT: - DIFFICULTY BREATHING DIAGNOSES: - Nicotine dependence, unspecified, uncomplicated - COVID-19 - Unspecified asthma, uncomplicated - Other oil heaterman (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 - Shortness of breath INPATIENT VISIT TRACKING (12 MO.) No inpatient visits to display in this time frame [email or web address]
[2021-09-04] MEDS ORDERED: PROMETHAZINE HC25 M1 PO (10:18)
== END 2021-09-04 10:25 | disposition home or self-care (01) ==
LOC: ED 07:10
DX: R10.13 Epigastric pain (principal); J45.909 Unspecified asthma, uncomplicated; F17.200 Nicotine dependence, unspecified, uncomplicated; Z79.899 Other long term (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; Z90.49 Acquired absence of other specified parts of digestive tract
CPT/HCPCS: 36415; 80053; 83690; 85025; 96361; 96374; 99284-25; J2550; J7030

== ENCOUNTER 2024-08-08 12:13 | Emergency (ER) | payer OTHER ==
[~2024-08-08] VITALS: Ht 177.8 cm; Wt 111.0 kg
[2024-08-08 12:28] LABS: BASOPHILS 0.7 % (0.2-1.2); HEMATOCRIT 43.7 % (40.1-51.0); HEMOGLOBIN 14.5 g/dL (13.7-17.5); LYMPHOCYTES 23.4 % (21.8-53.1); MCH 29.3 PG (25.7-32.2); MCHC 33.2 g/dL (32.3-36.5); MCV 88.3 fL (79.0-92.2); MONOCYTES 7.8 % (5.3-12.2); PLATELET COUNT 337 K/uL (163-337); RBC 4.95 M/uL (4.63-6.08)
[2024-08-08] MEDS ORDERED: ASPIRIN 81 MG CHEW PO ONE ×2 (12:30→12:45)
[2024-08-08] MEDS ORDERED: NITROGLYCERIN 0.4 MG SUBL SL PRN (12:30)
[2024-08-08] MEDS ORDERED: ASPIRIN 325 MG TAB PO ONE (12:30)
[2024-08-08] MEDS ORDERED: LISINOPRIL30 MG PO (12:36)
[2024-08-08] MEDS ORDERED: DULERA 100 MCG/13 GM INH (12:38)
[2024-08-08] MEDS ORDERED: ondansetron HCL 4 MG/2 ML VIAL IV ONE (12:45)
[2024-08-08 12:46] LABS: ALBUMIN 3.7 g/dL (3.4-5.0); ALBUMIN/GLOBULIN RATIO 1.09 (1.1-2.4); ANION GAP 13.1 (7-21); BILIRUBIN, TOTAL 0.4 mg/dL (0.2-1.0); BUN/CREATININE RATIO 9.37 (6.0-28.6); CALCIUM 9.1 mg/dL (8.5-10.1); CREATININE, SERUM 1.28 mg/dL (0.70-1.30); POTASSIUM 4.1 mmol/L (3.5-5.1); PROTEIN, TOTAL 7.1 g/dL (6.4-8.2)
[2024-08-08] MEDS ORDERED: OMEPRAZOLE40 MG PO (13:34)
[2024-08-08 13:52] VITALS: BP 126/74
--- NOTE | 2024-08-10 12:13 | EKG ---
[facility] [address] [place] [address] Signed Normal sinus rhythm with sinus arrhythmia Normal ECG When compared with ECG of 03-AUG-2021 10:26, No significant change was found Confirmed by Luis Daniel Torres DO ([id number]) on 08/10/2024 12:13:01 PM Electronically Signed By: LUIS DANIEL TORRES DO 08/10/24 1213 PATIENT NAME: KOSTAS NUNES ADA Electrocardiogram DATE OF : 68 PHYSICIAN: LUIS DANIEL TORRES DO REPORT #: [id number] REPORT IS CONFIDENTIAL AND NOT TO BE RELEASED WITHOUT AUTHORIZATION
== END 2024-08-08 13:52 | disposition home or self-care (01) ==
LOC: ED 12:13
PROVIDERS: Emergency Medicine
DX: R07.9 Chest pain, unspecified (principal); F43.10 Post-traumatic stress disorder, unspecified; J45.909 Unspecified asthma, uncomplicated; F17.200 Nicotine dependence, unspecified, uncomplicated
CPT/HCPCS: 36415; 71045; 80053; 83735; 84484; 85025; 93005; 93010; 96374; 99285-25; A9270; J2405